=== PATIENT | male | born 1985 | race Caucasian/White ===

== ENCOUNTER 2025-07-12 10:23 | Emergency (ER) | payer OTHER, SELFPAY ==
--- NOTE | ~2025-07-12 | XR_ITS ---
EXAMINATION: XR foot LT min 3V DATE: 07/12/2025 11:28 INDICATION: Left foot pain TECHNIQUE: Dorsoplantar, two oblique and lateral views of the left foot were obtained. COMPARISON: None. FINDINGS: Alignment is normal. No fracture. Minimal to mild polyarticular osteoarthritis at the first metatarsophalangeal and several tarsometatarsal and interphalangeal joints. Small subarticular lucencies at the medial side of the first interphalangeal joint which could represent degenerative subchondral cysts or small erosion such as in the setting of gout. Small Achilles calcaneal spur. Mild soft tissue swelling at the great toe centered at the medial aspect of the first interphalangeal joint. IMPRESSION: 1. 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 2. Subarticular lucencies at the medial side of the first interphalangeal joint and adjacent mild soft tissue swelling. This could represent degenerative subchondral cyst related to osteoarthritis or erosion such as in the setting of gout. Reviewed, dictated and finalized at location A. IMPRESSION: 1. 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 2. Subarticular lucencies at the medial side of the first interphalangeal joint and adjacent mild soft tissue swelling. This could represent degenerative subc hondral cyst related to osteoarthritis or erosion such as in the setting of gou t.
[2025-07-12 10:37] VITALS: BP 154/100; PULSE 104; RESP 16; TEMP 36.3; O2SAT 99
--- NOTE | 2025-07-12 13:13 | ED_ITS ---
HPI - General Adult General Chief complaint: Extremity Problem,Nontraumatic Stated complaint: left foot pain Time Seen by Provider: 07/12/25 11:10 History of Present Illness HPI narrative: 31-year-old male presents to the emergency department for evaluation for left lateral ankle pain. Patient did have injection steroid for his plantar fasciitis by his registered account administrator a few days ago. Patient began noticing worsening left ankle pain yesterday. Patient states pain was so bad he was unable to go to work today. Patient states pain is worsened with ambulation. Related Data Allergies Allergy/AdvReac Type Severity Reaction Status Date / Time NKDA Allergy Unknown Uncoded 04/22/23 09:11 NKFA Allergy Unknown Uncoded 04/22/23 09:11 NO KNOWN DRUG ALLERGIES Allergy Y Uncoded 04/22/23 09:11 (Class Allergy) Review of Systems Review of Systems: All systems reviewed & are unremarkable except as noted in HPI and below Exam Narrative: APPEARANCE: Well appearing, no pain, no distress, well-nourished. HEAD: normocephalic, atraumatic. EYES: PERRLA/EOMI, conjunctivae clear. NOSE: Normal no drainage EARS:TMS clear with good light reflex. THROAT: Pharynx clear, no exudate. NECK: Supple. No adenopathy, no masses. RESPIRATORY: Airway patent, respirations nonlabored. Clear to auscultation bilaterally, no rales, rhonchi, wheezing. CARDIOVASCULAR: Regular rate and rhythm without murmurs rubs or gallops. ABDOMINAL: Soft, nontender, nondistended, normal bowel sounds MUSCULOSKELETAL: Left lateral ankle tenderness to palpation, no deformity, neurovascularly intact NEURO: Alert. Cranial nerves II through XII intact. Good gait. Good coordination SKIN: Warm, dry. Normal Color PSYCHIATRIC: Normal affect/mood. Course Vital Signs Vital signs: Vital Signs Temperature 97.4 F L 07/12/25 10:37 Pulse Rate 104 H 07/12/25 10:37 Respiratory Rate 16 07/12/25 10:37 Blood Pressure 154/100 H 07/12/25 10:37 Pulse Oximetry 99 07/12/25 10:37 Temperature 97.4 F L 07/12/25 10:37 Pulse Rate 104 H 07/12/25 10:37 Respiratory Rate 16 07/12/25 10:37 Blood Pressure 154/100 H 07/12/25 10:37 Pulse Oximetry 99 07/12/25 10:37 Medical Decision Making MDM Narrative Medical decision making narrative: 39-year-old male presents emergency department for evaluation for left lateral ankle pain. No acute fracture dislocation x-rays. Strong distal pulse. Patient states pain started multiple days after getting the steroid injection low concern for injection complication. Patient will be provided Eric wrap for comfort crutches for nonweightbearing. Patient was encouraged of close follow- up was physicians. All questions concerns were addressed patient is well- appearing at time of discharge. Differential Diagnosis Differential Diagnosis: Cellulitis, abscess, ankle fracture, ankle sprain, foot fracture, foot contusion Vital Signs Vital Signs: Vital Signs Temperature 97.4 F L 07/12/25 10:37 Pulse Rate 104 H 07/12/25 10:37 Respiratory Rate 16 07/12/25 10:37 Blood Pressure 154/100 H 07/12/25 10:37 Pulse Oximetry 99 07/12/25 10:37 Temperature 97.4 F L 07/12/25 10:37 Pulse Rate 104 H 07/12/25 10:37 Respiratory Rate 16 07/12/25 10:37 Blood Pressure 154/100 H 07/12/25 10:37 Pulse Oximetry 99 07/12/25 10:37 Imaging Data Radiologist's impression: Impressions Foot X-Ray 07/12/25 11:39 IMPRESSION: 1. 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 2. Subarticular lucencies at the medial side of the first interphalangeal joint and adjacent mild soft tissue swelling. This could represent degenerative subchondral cyst related to osteoarthritis or erosion such as in the setting of gout. Discharge Plan Discharge Clinical Impression: Acute ankle pain Patient Disposition: Home Condition: Stable Instructions: Antibiotic Form, Arthralgia (ED) Additional Instructions: Eric wrap for comfort. Crutches for nonweightbearing. Naprosyn as directed for pain control. Bono as needed for additional pain control. Have close follow- up with your registered account administrator. If you have any worsening symptoms then please call or return to the emergency department. Patient Language: Albanian Prescriptions: New hydrocodone-acetaminophen 5-325 mg tablet 1 tablet PO Q12H PRN (Reason: pain) Qty: 14 0RF naproxen [Naprosyn] 500 mg tablet 500 mg PO BID 7 Days Qty: 14 0RF Follow-up/Referrals: PHYSICIAN,GEOPHYSICAL ENGINEER [Primary Care Provider, Internal Medicine] Stand Alone Forms: Work/School Release IP
== END 2025-07-12 13:44 | disposition home or self-care (01) ==
PROVIDERS: Emergency Provider Emergency Medicine
DX: M25.572 Pain in left ankle and joints of left foot (principal)
CPT/HCPCS: 73630; 99283